=== PATIENT | female | born 1985 | race African-American/Black ===

== ENCOUNTER → 2016-05-09 | Outpatient (CLI) | payer OTHER ==
--- NOTE | 2016-05-09 17:30 | US ---
First Trimester Obstetrical Sonography Clinical History: 31-year-old female who had a positive home test but has been bleeding for one week with heavy bleeding today, passing clots. She is and her LMP was March 17, 2016. E valuate for retained products of conception. ICD 10 Diagnostic Code: O20.0. Technique: Initially, a curvilinear 5 MHz transducer was used to selectively evaluate the pelvis, usi ng a moderately distended urinary bladder as a window. To better assess the uterine architecture and the adnexal structures, endovaginal pelvic sonography was also performed. Color and spectral Doppler of the maternal ovaries was performed. Cine clips were acquired through the uterus. Comparison Study: None from current . Findings: The uterus is normal in size, shape, and position, measuring 9.3 x 4.3 x 5.2 cm. There is m ixed echogenicity mobile material identified within the lower uterine segment with no vascularity savanna ntified with color Doppler. This area measures 2.7 x 1.3 x 0.9 cm, and may represent an ongoing misca rriage with associated hemorrhagic debris. There is no viable intrauterine or discrete gest ational sac observed. Incidental note is made of a punctate echogenic calcification in the fundal asp ect of the endometrium with no associated vascularity, measuring 3 x 1 x 1 mm. There is a small amoun t of free fluid in the pelvic cul-de-sac. The maternal right ovary measures 2.3 x 1.7 x 2.1 cm, and c ontains an anechoic 1.0 x 1.2 x 1.1 cm corpus luteum cyst. The left ovary measures 2.2 x 1.6 x 2.4 cm . Intraovarian venous and arterial flow is documented, with a resistive index associated with the lef t ovary measuring 0.59, and with the right ovary measuring 0.54. Impression: 1. There is no viable intrauterine , or discrete gestational sac identified. 2. There is avascular heterogeneously-echogenic mobile material identified in the lower uterine segme nt measuring 2.7 x 1.3 x 0.9 cm which may represent an ongoing miscarriage with some hemorrhagic debr is. Clinical correlation and follow-up are suggested. 3. There is a simple appearing 1.2 cm right ovarian corpus luteum cyst. There is no torsion. 4. Small amount of free fluid in the pelvic cul-de-sac. Results were called Dr. Tawnya Fan, as requested. A test result has been communicated to a licensed care provider and documented in the [employer] Critical Result system on 05/09/2016 17:22, Message ID [id number].
== END ==
LOC: BRMIMAGING 16:06
PROVIDERS: ATTEND Family Medicine
DX: O03.9 Complete or unspecified spontaneous abortion without complication (principal); N83.11 Corpus luteum cyst of right ovary

== ENCOUNTER → 2016-05-21 | Outpatient (CLI) | payer OTHER | LOC: BRMIMAGING 14:17 | PROVIDERS: ATTEND Family Medicine | DX: O03.89 Complete or unspecified spontaneous abortion with other complications (principal) ==